=== PATIENT | female | born 1985 | race Caucasian/White ===

== ENCOUNTER 2016-08-29 15:57 | Inpatient (IN) | payer MEDICAID ==
[~2016-08-29] VITALS: Ht 160 cm; Wt 50.9 kg
[2016-08-29] MEDS ORDERED: SOD CHLORIDE 0.9% 500 ML IV STA (17:13)
[2016-08-29 17:53] LABS: ADD UMIC NO; URINE BILIRUBIN (Dip) NEGATIVE (NEGATIVE); URINE BLOOD (Dip) NEGATIVE (NEGATIVE); URINE COLOR LT. YELLOW (YELLOW); URINE GLUCOSE (Dip) NEGATIVE (NEGATIVE); URINE KETONES (Dip) NEGATIVE (NEGATIVE); URINE LEUKOCYTE ESTERASE (Dip) NEGATIVE (NEGATIVE); URINE NITRITE (Dip) NEGATIVE (NEGATIVE); URINE TOTAL PROTEIN (Dip) NEGATIVE (NEGATIVE); URINE UROBILINOGEN (Dip) 0.2 E.U./dL (0.1-1.0)
[2016-08-29 17:54] LABS: ADD SCAN DIFF NO
[2016-08-29 17:57] LABS: BASOPHILS % 0.4 % (0.0-2.0); EOSINOPHILS # 0.1 10^3/ul (0.0-0.5); EOSINOPHILS % 1.5 % (0.0-7.0); HEMOGLOBIN 12.8 g/dl (12.0-16.0); LYMPHOCYTES # 3.5 10^3/ul (0.8-2.9); LYMPHOCYTES % 41.7 % (15.0-51.0); MEAN CORPUSCULAR HEMOGLOBIN 29.1 pg (29.0-33.0); MEAN CORPUSCULAR HGB CONC 32.8 g/dl (32.0-37.0); MEAN CORPUSCULAR VOLUME 88.6 fl (82.0-101.0); MEAN PLATELET VOLUME 9.2 fl (7.4-10.4); MONOCYTE # 0.5 10^3/ul (0.3-0.9); MONOCYTES % 5.5 % (0.0-11.0); NEUTROPHIL # 4.3 10^3/ul (1.6-7.5); NEUTROPHILS % 50.5 % (39.0-77.0); PLATELET COUNT 349 10^3/UL (140-415); RED CELL DISTRIBUTION WIDTH 12.1 % (11.5-14.5); WHITE BLOOD COUNT 8.5 10^3/ul (4.8-10.8)
--- NOTE | 2016-08-29 18:16 | RADRPT ---
PROCEDURE: US Pelvis. CLINICAL INDICATION: , vaginal bleeding. TECHNIQUE: Multiple sonographic images of the pelvis were obtained utilizing a transabdominal and endovaginal technique. The images were reviewed on a PACS workstation. COMPARISON: None available. FINDINGS: Uterus appears normal in size and demonstrates a gestational sac which contains a yolk sac and pole. There is no cardiac activity detected. The mean sac size is 2.25 cm consist with a 7-week-1 -day gestation. The crown-rump length equals 0.45 cm consistent with a 9-xojs-7-day gestation. The re are no abnormal fluid collections. The right ovary is not visualized. Left ovary measures 4.1 x 2.3 x 3.2 cm. There is Doppler flow. There is a 2.4 cm corpus luteal cyst. There are no adnexal masses and no free fluid seen in the cul-de-sac. IMPRESSION: 1. Intrauterine gestation which measures 6 weeks 5 days plus or minus 3 days. There is no cardiac a ctivity detected. Continued surveillance with serial quantitative beta HCGs and follow-up ultrasoun d is suggested. RPTAT: [facility] Physician Angi Date Time Electronically viewed and signed by Physician Angi on 08/29/2016 18:16 /
[2016-08-29 18:18] LABS: ALBUMIN 4.5 g/dl (3.3-4.9); POTASSIUM 3.6 mmol/L (3.5-5.1)
[2016-08-29 18:21] LABS: ALBUMIN/GLOBULIN RATIO 1.4; BILIRUBIN,INDIRECT 0.4 mg/dl (0-1.1); BILIRUBIN,TOTAL 0.4 mg/dl (0.2-1.3); CALCIUM 9.1 mg/dl (8.4-10.2); CREATININE 0.64 mg/dl (0.44-1.00); TOTAL PROTEIN 7.7 g/dl (6.1-8.1)
[2016-08-29] MEDS ORDERED: FOLI-49 PO (19:27)
[2016-08-29] MEDS ORDERED: PRENAT PO (19:27)
[2016-08-29] MEDS ORDERED: FER325 PO (19:27)
[2016-08-29 20:45] VITALS: TEMP 98.8
[2016-08-29 20:47] LABS: INR 0.97; PROTIME 12.9 Sec (12.2-14.2)
[2016-08-29 20:48] LABS: PARTIAL THROMBOPLASTIN TIME 30.9 Sec (25.0-35.0)
--- NOTE | 2016-08-29 21:20 | ERA ---
ER Documentation Chief Complaint Date/Time DATE: 08/29/16 TIME: 21:15 Chief Complaint 6WEEKS PREG ABD CRAMPING SINCE AM, VAGINAL DISCHARGE X1DAY HPI 31-year-old woman presents with dark colored vaginal bleeding times a few days as well as increased pelvic cramping beginning this morning, although she states she has had pelvic cramping over the last few days. She is over 6 weeks by dates and previously normal ultrasound. It seems she had a previously normal ultrasound although today's ultrasound at her obstetric clinic revealed no cardiac activity and she was referred here for further evaluation. She denies loss of consciousness, no fevers or chills, no chest pain or shortness of breath, no trauma. ROS All systems reviewed and are negative except as per history of present illness. Medications Home Meds Reported Medications Ferrous Sulfate* (Ferrous Sulfate*) 325 Mg Tabec, 325 MG PO DAILY, TAB 08/29/16 Folic Acid* (Folic Acid*) 1 Mg Tablet, 1 MG PO DAILY, TAB 08/29/16 Multivit/Min/Fol Ac/Iron/Pren* ( S*) 1 Tab Tab, 1 TAB PO DAILY, TAB 08/29/16 Allergies Allergies: Coded Allergies: No Known Drug Allergy (Verified Allergy, Unknown, 08/29/16) PMhx/Soc None Medical and Surgical Hx: pt denies Medical Hx History of Surgery: Yes () Anesthesia Reaction: No Hx Neurological Disorder: No Hx Respiratory Disorders: No Hx Cardiac Disorders: No Hx Psychiatric Problems: No Hx Miscellaneous Medical Probl: No Hx Alcohol Use: No Hx Substance Use: No Hx Tobacco Use: No Smoking Status: Never smoker FmHx Family History: No diabetes Physical Exam Vitals Vital Signs Date Time Temp Pulse Resp B/P Pulse Ox O2 Delivery O2 Flow Rate FiO2 08/29/16 20:45 98.8 71 16 108/77 98 08/29/16 16:03 98.6 73 18 134/78 99 Physical Exam GENERAL: Well-developed, well-nourished, well-hydrated, in moderate discomfort HEENT: Moist mucous membranes, pink conjunctiva, no cervical spine tenderness or step-off deformities, no goiter, no jaundice or icterus, extraocular movements intact without pain. No submandibular induration, and no pharyngeal erythema NEURO: Alert and oriented 3, cranial nerves II through XII intact bilaterally, pupils equal round reactive to light, no focal deficits or facial asymmetry, sensation intact distally Strength 5/5 in upper and lower extremities bilaterally CARDIAC: Regular rate and rhythm, no murmurs rubs or gallops LUNGS: Clear bilaterally no wheezing crackles or stridor ABDOMEN: Positive lower abdominal tenderness with voluntary guarding, no rigidity, no rebound, no psoas sign no obturator sign. Normoactive bowel sounds SKIN: Warm and dry to touch, no abrasions, contusions, or hematomas, no lacerations, no ecchymosis, no target lesions, and without ulcers EXTREMITIES: No clubbing cyanosis or edema, calves are bilaterally symmetrical, no Homans sign, no popliteal cord sign. Distal pulses equal and bilateral PSYCH: Normal affect without agitation or irritability Result Diagram: 08/29/16173708/29/161737 Results 24 hrs Laboratory Tests Test 08/29/16 17:38 White Blood Count 8.510^3/ul Red Blood Count 4.4010^6/ul Hemoglobin 12.8g/dl Hematocrit 39.0% Mean Corpuscular Volume 88.6fl Mean Corpuscular Hemoglobin 29.1pg Mean Corpuscular Hemoglobin Concent 32.8g/dl Red Cell Distribution Width 12.1% Platelet Count 66803^3/UL Mean Platelet Volume 9.2fl Neutrophils % 50.5% Lymphocytes % 41.7% Monocytes % 5.5% Eosinophils % 1.5% Basophils % 0.4% Nucleated Red Blood Cells % 0.0/100WBC Neutrophils # 4.310^3/ul Lymphocytes # 3.510^3/ul Monocytes # 0.510^3/ul Eosinophils # 0.110^3/ul Basophils # 0.010^3/ul Nucleated Red Blood Cells # 0.010^3/ul Prothrombin Time 12.9Sec Prothrombin Time Ratio 1.0 INR International Normalized Ratio 0.97 Activated Partial Thromboplast Time 30.9Sec Urine Color LT. YELLOW Urine Clarity CLEAR Urine pH 6.5 Urine Specific [place] <=1.005 Urine Ketones NEGATIVE Urine Nitrite NEGATIVE Urine Bilirubin NEGATIVE Urine Urobilinogen 0.2 E.U./dL Urine Leukocyte Esterase NEGATIVE Urine Hemoglobin NEGATIVE Urine Glucose NEGATIVE% Urine Total Protein NEGATIVE Sodium Level 136mmol/L Potassium Level 3.6mmol/L Chloride Level 99mmol/L Carbon Dioxide Level 25mmol/L Anion Gap 16 Blood Urea Nitrogen 10mg/dl Creatinine 0.64mg/dl Glucose Level 89mg/dl Calcium Level 9.1mg/dl Total Bilirubin 0.4mg/dl Direct Bilirubin 0.00mg/dl Indirect Bilirubin 0.4mg/dl Aspartate Amino Transf (AST/SGOT) 21IU/L Alanine Aminotransferase (ALT/SGPT) 29IU/L Alkaline Phosphatase 52IU/L Total Protein 7.7g/dl Albumin 4.5g/dl Globulin 3.20g/dl Albumin/Globulin Ratio 1.40 Beta HCG, Quantitative 91032.0mIU/ml Current Medications Medications (Trade) Dose Ordered Sig/Filemon Route PRN Reason Start Time Stop Time Status Last Admin Dose Admin Sodium Chloride (NS) 500 ml @ 500 mls/hr Q1H STAT IV 08/29/16 17:13 08/29/16 18:12 DC 08/29/16 17:36 Procedures/MDM IV line was established patient was placed on child monitor rhythm strip revealed a sinus rhythm at about 80 bpm with upright P and T waves. Patient was afebrile. test was positive. Beta-hCG almost 100,000. Obstetric ultrasound revealed an intrauterine at over 6 weeks with no cardiac activity seen. CBC was unremarkable, electrolytes normal, urine analysis negative for infection. I administered over 1 L normal saline intravenously. I obtained VEHICLE PAINTER consultation regarding the patient's presentation, symptomatology, and ultrasound findings. I suspect she was sent here for ongoing symptoms and recent missed . Patient will be admitted for continued gynecologic management and possible D&C. I spoke to the patient regarding her symptoms, ultrasound findings, and need for admission. Departure Diagnosis: Primary Impression: Vaginal bleeding Additional Impression: Missed Condition: MEENU Chiang MD Aug 29, 2016 21:20
[2016-08-29] MEDS ORDERED: SOD CHLORIDE 0.9% 1,000 ML IV ONE (21:30)
[2016-08-29 22:55] VITALS: Ht 160 cm; Wt 50.9 kg
[2016-08-29 23:01] VITALS: BP 106/64; PULSE 74; RESP 18
--- NOTE | 2016-08-30 01:42 | PN ---
Date/Time of Note Date/Time of Note DATE: 08/30/16 TIME: 01:35 OB Subjective Subjective Subjective I was called at approx 11pm, while I was in a , and notified that this patient is admitted in [facility] under my name. I had not been previously called by the ER doctor or asked to consult on this patient and was not aware of her admission. I went to evaluate the patient on . She is a 31 yo P1 @ approximately 7 wks gestation. Sonogram shows missed , gestational sac and pole c /w [id number], and no cardiac activity. Blood type is A+, and Hemoglobin was 12.8. Patient had some mild cramps earlier, is in no pain, and is not bleeding. SVE- cervix L/C/P; no blood in vaginal vault A/P: Advised patient on the three possible treatments for missed 1. Expectant management- the may pass on its own 2. Possible medical management with cytotec to expel the 3. D&C to remove the non-viable . Discussed with patient that these are outpatient managements, and there is no indication for her to be admitted in the hospital at this time. Patient and to consider these options and return to her clinic tomorrow. Patient discharged home. ZAFAR DONG MD Aug 30, 2016 01:42
== END 2016-08-30 02:15 | disposition home or self-care (01) | DRG 779 ==
LOC: FTE 15:57 → MS1 18:50
PROVIDERS: ADMIT Obstetrics & Gynecology; ATTEND Obstetrics & Gynecology
DX: O02.1 Missed abortion (principal); O46.91 Antepartum hemorrhage, unspecified, first trimester
CPT/HCPCS: 36415; 76801; 76817; 80053; 81003; 84702; 85025; 85610; 85730; 86900; 86901; 87086; J7030; J7040

== ENCOUNTER 2016-09-04 15:13 | Emergency (ER) | payer MEDICAID ==
[~2016-09-04] VITALS: Ht 152.4 cm; Wt 51.5 kg
[2016-09-04 15:15] VITALS: Ht 152.4 cm; Wt 51.5 kg
--- NOTE | 2016-09-04 19:17 | RADRPT ---
PROCEDURE: US OB. US OB Transabd 1St Tri CLINICAL INDICATION: Follow-up, early TECHNIQUE: Transabdominal and transvaginal views of the pelvis are available for review. COMPARISON: 08/29/2016 FINDINGS: The uterus demonstrates a gestational sac, with mean sac diameter measuring 2.8 cm. There is a feta l pole identified. A yolk sac is noted. There is a 3.7 cm subchorionic bleed. [place]-rump length:5 mm heart rate:110 beats per minute Ultrasound estimated gestational age:7 weeks and 0 days Estimated delivery date 04/23/2017 . Estimated delivery date by last menstrual period 04/20/2017 No ovarian or adnexal mass lesion is seen. There is no free fluid. IMPRESSION: 1. Single live intrauterine with an estimated gestational age of 7 weeks and 0 days. The re is a moderate size subchorionic bleed noted, 3.7 cm RPTAT: HBST .Alex Townsend MD, Date Time Electronically viewed and signed by .Alex Townsend MD, on 09/04/2016 19:17 .T/
[2016-09-04] MEDS ORDERED: PRENAT PO (19:29)
--- NOTE | 2016-09-04 19:33 | ERD ---
ER Documentation Chief Complaint Date/Time DATE: 09/04/16 TIME: 19:31 Chief Complaint 7 weeks preg , no vag bleed . 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 Follow-up hCG is demonstrated arising pattern yet the OB GEN could not find a heartbeat and was sent here for evaluation to rule out demise. The patient is completely asymptomatic and not having any bleeding cramping dysuria abdominal pain or pelvic pain. She had a baby 7 months ago. ROS All systems reviewed and are negative except as per history of present illness. Medications Home Meds Active Scripts Multivit/Min/Fol Ac/Iron/Pren* ( S*) 1 Tab Tab, 1 TAB PO DAILY, #60 TAB Prov:KURTIS JAIMES DO 09/04/16 Discontinued Reported Medications Ferrous Sulfate* (Ferrous Sulfate*) 325 Mg Tabec, 325 MG PO DAILY, TAB 08/29/16 Folic Acid* (Folic Acid*) 1 Mg Tablet, 1 MG PO DAILY, TAB 08/29/16 Multivit/Min/Fol Ac/Iron/Pren* ( S*) 1 Tab Tab, 1 TAB PO DAILY, TAB 08/29/16 Allergies Allergies: Coded Allergies: No Known Drug Allergy (Verified Allergy, Unknown, 08/29/16) PMhx/Soc History of Surgery: Yes (CAESARIAN SECTION) Anesthesia Reaction: Yes (hard time breathing) Hx Neurological Disorder: No Hx Respiratory Disorders: No Hx Cardiac Disorders: No Hx Psychiatric Problems: No Hx Miscellaneous Medical Probl: No Hx Alcohol Use: No Hx Substance Use: No Hx Tobacco Use: No Smoking Status: Never smoker FmHx Family History: No coronary disease Physical Exam Vitals Vital Signs Date Time Temp Pulse Resp B/P Pulse Ox O2 Delivery O2 Flow Rate FiO2 09/04/16 15:15 98.1 69 18 105/55 99 Physical Exam Const: Well-developed, well-nourished Head: Atraumatic, normocephalic Eyes: Normal Conjunctiva, PERRLA, EOMI, normal sclera, no nystagmus ENT: Normal External Ears, Nose and Mouth, moist mucus membranes. Neck: Full range of motion. No meningismus, no lymphadenopathy. Resp: Clear to auscultation bilaterally, no wheezing, rhonchi, rales Cardio: Regular rate and rhythm, no murmurs, S1 S2 present Abd: Soft, non tender x 4, non distended. Normal bowel sounds, no guarding or rebound, no pulsitile abdominal masses or bruits Skin: No petechiae or rashes, no ecchymosis , no maculopapular rash Back: No midline or flank tenderness Ext: No cyanosis, or edema, FROM x 4, normal inspection, neurovascularly intact x 4 Neur: Awake and alert, STR 5/5 x 4, sensation intact x 4, no focal findings, cerebellum intact Psych: Normal Mood and Affect Procedures/MDM PROCEDURE: US OB. US OB Transabd 1St Tri CLINICAL INDICATION: Follow-up, early TECHNIQUE: Transabdominal and transvaginal views of the pelvis are available for review. COMPARISON: 08/29/2016 FINDINGS: The uterus demonstrates a gestational sac, with mean sac diameter measuring 2.8 cm. There is a pole identified. A yolk sac is noted. There is a 3.7 cm subchorionic bleed. [place]-rump length: 5 mm heart rate: 110 beats per minute Ultrasound estimated gestational age: 7 weeks and 0 days Estimated delivery date 04/23/2017 . Estimated delivery date by last menstrual period 04/20/2017 No ovarian or adnexal mass lesion is seen. There is no free fluid. IMPRESSION: 1. Single live intrauterine with an estimated gestational age of 7 weeks and 0 days. There is a moderate size subchorionic bleed noted, 3.7 cm RPTAT: HBST .Alex Townsend MD, Date Time Electronically viewed and signed by .Alex Townsend MD, on 09/04/2016 19:17 .T/ CC: KURTIS JAIMES DO Patient has a live IUP. She will follow-up with her OB GEN Departure Diagnosis: Primary Impression: Weeks of gestation: less than 8 weeks Qualified Code: Z3A.01 - Less than 8 weeks gestation of Condition: Stable Patient Instructions: , Established, Normal Symptoms KURTIS JAIMES DO September 04, 2016 19:33
[2016-09-04 19:49] VITALS: BP 100/61; PULSE 84; RESP 18; TEMP 98.1
== END 2016-09-04 19:49 | disposition home or self-care (01) ==
LOC: FTE 15:13
DX: Z36 Encounter for antenatal screening of mother (principal); Z3A.01 Less than 8 weeks gestation of pregnancy
CPT/HCPCS: 76801; 76817; 84702; Z7502

== ENCOUNTER 2016-10-02 20:29 | Emergency (ER) | payer MEDICAID ==
[~2016-10-02] VITALS: Ht 162.6 cm; Wt 51.0 kg
[~2016-10-02 20:29] MED LIST: PRENAT PO
[2016-10-02 20:31] VITALS: Ht 162.6 cm; Wt 51.0 kg
[2016-10-02] MEDS ORDERED: ACETAMINOPHEN 325 MG TAB PO STA (21:42)
[2016-10-02 22:14] LABS: ADD SCAN DIFF NO
[2016-10-02 22:16] LABS: BASOPHILS % 0.3 % (0.0-2.0); EOSINOPHILS # 0.2 10^3/ul (0.0-0.5); EOSINOPHILS % 2.4 % (0.0-7.0); HEMATOCRIT 36.3 % (37.0-47.0); LYMPHOCYTES # 3.7 10^3/ul (0.8-2.9); LYMPHOCYTES % 41.6 % (15.0-51.0); MEAN CORPUSCULAR HEMOGLOBIN 28.8 pg (29.0-33.0); MEAN CORPUSCULAR HGB CONC 33.1 g/dl (32.0-37.0); MEAN CORPUSCULAR VOLUME 87.3 fl (82.0-101.0); MEAN PLATELET VOLUME 9.4 fl (7.4-10.4); MONOCYTE # 0.3 10^3/ul (0.3-0.9); MONOCYTES % 3.8 % (0.0-11.0); NEUTROPHIL # 4.5 10^3/ul (1.6-7.5); NEUTROPHILS % 51.7 % (39.0-77.0); PLATELET COUNT 292 10^3/UL (140-415); RED BLOOD COUNT 4.16 10^6/ul (4.20-5.40); WHITE BLOOD COUNT 8.8 10^3/ul (4.8-10.8)
[2016-10-02 22:41] LABS: ALBUMIN 4.7 g/dl (3.3-4.9); ALBUMIN/GLOBULIN RATIO 1.95; BILIRUBIN,INDIRECT 0.5 mg/dl (0-1.1); BILIRUBIN,TOTAL 0.5 mg/dl (0.2-1.3); CALCIUM 8.9 mg/dl (8.4-10.2); CREATININE 0.54 mg/dl (0.44-1.00); POTASSIUM 3.7 mmol/L (3.5-5.1); TOTAL PROTEIN 7.1 g/dl (6.1-8.1)
[2016-10-02 23:14] LABS: ADD UMIC YES; URINE BILIRUBIN (Dip) NEGATIVE (NEGATIVE); URINE BLOOD (Dip) 1+ (NEGATIVE); URINE COLOR LT. YELLOW (YELLOW); URINE GLUCOSE (Dip) NEGATIVE (NEGATIVE); URINE KETONES (Dip) NEGATIVE (NEGATIVE); URINE LEUKOCYTE ESTERASE (Dip) NEGATIVE (NEGATIVE); URINE NITRITE (Dip) NEGATIVE (NEGATIVE); URINE TOTAL PROTEIN (Dip) NEGATIVE (NEGATIVE); URINE UROBILINOGEN (Dip) 0.2 E.U./dL (0.1-1.0)
--- NOTE | 2016-10-02 23:25 | RADRPT ---
PROCEDURE: US OB. CLINICAL INDICATION: Pelvic pain. Bleeding. TECHNIQUE: Multiple sonographic images of the pelvis were obtained. Transabdominal and transvagin al views of the pelvis are available for review. The images were reviewed on a PACS workstation. COMPARISON: 09/04/2016 FINDINGS: There is an irregular intrauterine gestational sac at 3.4 cm diameter, corresponding to 8 weeks 4 da ys age. No pole or heart motion is identified.. A yolk sac is identified. Internal debris is present within the sac. The previously demonstrated subchorionic hemorrhage is not identified. Ther e is a 1.2 x 1.2 x 1.3 cm left adnexal/. Ovarian cyst. The ovaries are otherwise unremarkable colo r flow.. There is no adnexal mass or free fluid. IMPRESSION: 1. Previously demonstrated pole with heart motion is low longer identified. Irregular gestat ional sac in the weeks 4 days size with debris is now present, compatible with demise. 2. Previously identified subchorionic hemorrhage is not distinctly visualized. 3. Left paraovarian simple cyst. RPTAT: HMVK .Beto Sánchez MD, MD Date Time Electronically viewed and signed by .Beto Sánchez MD, MD on 10/02/2016 23:25 .K/
[2016-10-02 23:38] LABS: BACTERIA,URINE FEW; SQUAMOUS EPITHELIAL CELL,UR OCCASIONAL; URINE RBCS 0-2 /HPF (0)
--- NOTE | 2016-10-03 00:17 | ERD ---
ER Documentation Chief Complaint Date/Time DATE: 10/03/16 TIME: 00:16 Chief Complaint headache x 1 week HPI Pt 31 yo female presenting to the emergency department for vaginal bleeding which has been ongoing intermittently for the past week. One week ago the patient started taking Cytotec prescribed by her [employer] physician to assist with expelling retained products of conception. The patient was diagnosed with a incomplete by her [employer] physician at approximately 8 weeks of . The patient is now reportedly 10 weeks along in and she is determining whether she will have a D&C or continue taking Cytotec. Currently she only has intermittent vaginal bleeding but no suprapubic pain, abdominal pain, fevers, chills, nausea, vomiting, diarrhea, or other symptoms. ROS All systems reviewed and are negative except as per history of present illness. Medications Home Meds Active Scripts Acetaminophen* (Tylophen*) 500 Mg Capsule, 1 CAP PO Q6H Y for PAIN AND OR ELEVATED TEMP, #20 CAP Prov:MARYAM HUDDLESTON NP 10/03/16 Misoprostol* (Cytotec*) 100 Mcg Tablet, 400 MCG PO Q6, #8 TAB Prov:MARYAM HUDDLESTON NP 10/03/16 Multivit/Min/Fol Ac/Iron/Pren* ( S*) 1 Tab Tab, 1 TAB PO DAILY, #60 TAB Prov:KURTIS JAIMES DO 09/04/16 Allergies Allergies: Coded Allergies: No Known Drug Allergy (Verified Allergy, Unknown, 08/29/16) PMhx/Soc History of Surgery: Yes (CAESARIAN SECTION) Anesthesia Reaction: Yes (hard time breathing) Hx Neurological Disorder: No Hx Respiratory Disorders: No Hx Cardiac Disorders: No Hx Psychiatric Problems: No Hx Miscellaneous Medical Probl: No Hx Alcohol Use: No Hx Substance Use: No Hx Tobacco Use: No FmHx Noncontributory for chief complaint Physical Exam Vitals Vital Signs Date Time Temp Pulse Resp B/P Pulse Ox O2 Delivery O2 Flow Rate FiO2 10/03/16 01:31 97.8 74 17 121/58 99 Room Air 10/02/16 20:31 97.8 76 20 114/61 99 Physical Exam Const: The patient is resting comfortably in no acute distress. Head: Atraumatic Eyes: Normal Conjunctiva ENT: Normal External Ears, Nose and Mouth. Neck: Full range of motion..~ No meningismus. Resp: Clear to auscultation bilaterally Cardio: Regular rate and rhythm, no murmurs Abd: Soft, non tender, non distended. Normal bowel sounds Skin: No petechiae or rashes Back: No midline or flank tenderness Ext: No cyanosis, or edema Neur: Awake and alert Psych: Normal Mood and Affect Result Diagram: 10/02/16215510/02/162155 Results 24 hrs Laboratory Tests Test 10/02/16 21:56 10/02/16 22:46 10/02/16 23:50 White Blood Count 8.810^3/ul Red Blood Count 4.1610^6/ul Hemoglobin 12.0g/dl Hematocrit 36.3% Mean Corpuscular Volume 87.3fl Mean Corpuscular Hemoglobin 28.8pg Mean Corpuscular Hemoglobin Concent 33.1g/dl Red Cell Distribution Width 12.0% Platelet Count 98343^3/UL Mean Platelet Volume 9.4fl Neutrophils % 51.7% Lymphocytes % 41.6% Monocytes % 3.8% Eosinophils % 2.4% Basophils % 0.3% Nucleated Red Blood Cells % 0.0/100WBC Neutrophils # 4.510^3/ul Lymphocytes # 3.710^3/ul Monocytes # 0.310^3/ul Eosinophils # 0.210^3/ul Basophils # 0.010^3/ul Nucleated Red Blood Cells # 0.010^3/ul Sodium Level 137mmol/L Potassium Level 3.7mmol/L Chloride Level 109mmol/L Carbon Dioxide Level 24mmol/L Anion Gap 8 Blood Urea Nitrogen 10mg/dl Creatinine 0.54mg/dl Glucose Level 90mg/dl Calcium Level 8.9mg/dl Total Bilirubin 0.5mg/dl Direct Bilirubin 0.00mg/dl Indirect Bilirubin 0.5mg/dl Aspartate Amino Transf (AST/SGOT) 27IU/L Alanine Aminotransferase (ALT/SGPT) 38IU/L Alkaline Phosphatase 61IU/L Total Protein 7.1g/dl Albumin 4.7g/dl Globulin 2.40g/dl Albumin/Globulin Ratio 1.95 Beta HCG, Quantitative 44144.0mIU/ml Urine Color LT. YELLOW Urine Clarity CLEAR Urine pH 5.5 Urine Specific [place] <=1.005 Urine Ketones NEGATIVE Urine Nitrite NEGATIVE Urine Bilirubin NEGATIVE Urine Urobilinogen 0.2 E.U./dL Urine Leukocyte Esterase NEGATIVE Urine Microscopic RBC 0-2/HPF Urine Microscopic WBC 0-2/HPF Urine Squamous Epithelial Cells OCCASIONAL Urine Bacteria FEW Urine Hemoglobin 1+ Urine Glucose NEGATIVE% Urine Total Protein NEGATIVE Prothrombin Time 13.5Sec Prothrombin Time Ratio 1.1 INR International Normalized Ratio 1.03 Activated Partial Thromboplast Time 30.7Sec Current Medications Medications (Trade) Dose Ordered Sig/Filemon Route PRN Reason Start Time Stop Time Status Last Admin Dose Admin Acetaminophen (Tylenol Tab) 650 mg ONCE STAT PO 10/02/16 21:42 10/02/16 21:44 DC 10/02/16 21:55 [place] [address] Radiology Main Line: [phone] DIAGNOSTIC IMAGING REPORT Patient: JACQUES SANDERSON : 1985 Age: 31 Sex: F MR #: [id number] DOS: 10/02/16 0000 Ordering MD: DAVID SMALLS PA-C Location: [facility] Room/Bed: PROCEDURE: US OB. CLINICAL INDICATION: Pelvic pain. Bleeding. TECHNIQUE: Multiple sonographic images of the pelvis were obtained. Transabdominal and transvaginal views of the pelvis are available for review. The images were reviewed on a PACS workstation. COMPARISON: 09/04/2016 FINDINGS: There is an irregular intrauterine gestational sac at 3.4 cm diameter, corresponding to 8 weeks 4 days age. No pole or heart motion is identified.. A yolk sac is identified. Internal debris is present within the sac. The previously demonstrated subchorionic hemorrhage is not identified. There is a 1.2 x 1.2 x 1.3 cm left adnexal/. Ovarian cyst. The ovaries are otherwise unremarkable color flow.. There is no adnexal mass or free fluid. IMPRESSION: 1. Previously demonstrated pole with heart motion is low longer identified. Irregular gestational sac in the weeks 4 days size with debris is now present, compatible with demise. 2. Previously identified subchorionic hemorrhage is not distinctly visualized. 3. Left paraovarian simple cyst. RPTAT: HMVK .Beto Sánchez MD, Date Time Electronically viewed and signed by .Beto Sánchez MD, on 10/02/2016 23:25 .K/ CC: DAVID SMALLS PA-C Procedures/MDM This patient is a 31-year-old female presenting to the emergency department for intermittent vaginal bleeding after incomplete . On physical examination the patient's vitals are stable and they remained stable throughout the patient's ED course. Lab results showed no significant acute abnormalities. There were no signs of leukocytosis or anemia. Urinalysis is negative for infection or proteinuria. Transvaginal and transabdominal ultrasound was obtained and had an overall impression of: 1. Previously demonstrated pole with heart motion is low longer identified. Irregular gestational sac in the weeks 4 days size with debris is now present, compatible with demise. 2. Previously identified subchorionic hemorrhage is not distinctly visualized. 3. Left paraovarian simple cyst. After receiving these results I contacted the on-call laborist Dr. Tijerina, and then this patient's care was signed out to my colleague, Maryam Huddleston NP, who followed up after coag results were received. She then contacted Dr. Tijerina again, who recommended patient to be sent home with Cytotec 400 mcg q6hrs for 2 days, ffup with outpatient OB for further eval, return for worsening s/s. This recommendation was honored. The patient understand the discharge plan and diagnosis and was stable for discharge afterwards. Strict ER return precautions were discussed with the patient prior to discharge. Departure Diagnosis: Primary Impression: Missed with demise before 20 completed weeksof ... Condition: Fair Patient Instructions: Missed Miscarriage Referrals: [employer] [place] [address] [facility] [address] [place] [address]ME [address] [address] [address]AL[address] [address] [place] [address] THER[address] DI[address]EMILY [address], [place] [address] [facility] [address] [place] [address] [facility] [address] [place] [address] [facility] [id number] [address]INE[address] [facility], [facility] [address] [address] [facility] [address] [facility]. [address], [facility] [address] [facility] [address] [place], [place] [address] Additional Instructions: No mas mejor en 2-3 worrell, regresar. Mas peor en 24 horas, regresear rapidamente. Ir a doctor primario in 5-7 worrell. Usar instrucciones cuando ronda medicamento. DAVID SMALLS PA-C Oct 03, 2016 00:17 [id number] [facility] [address] [place] [address] OFFICE FAX WALE MYERS [address] [place] [address] [address] [place] [address] [place] [address] [facility] [address], [place] [address] [address] [facility] [facility] [address] [place] [address] [facility] [place] [address] [place] [id number] [facility] [id number] - [address] LAINEZ, NOELLE [address] [facility] [id number] [place], [place] [address] [facility]. [address], [facility] [id number] [place], [place] [address] [place] [address] Additional Instructions: No mas mejor en 2-3 worrell, regresar. Mas peor en 24 horas, regresear rapidamente. Ir a doctor primario in 5-7 worrell. Usar instrucciones cuando ronda medicamento. DAVID SMALLS PA-C Oct 03, 2016 00:17
[2016-10-03 00:20] LABS: INR 1.03; PROTIME 13.5 Sec (12.2-14.2); PT RATIO 1.1
[2016-10-03 00:21] LABS: PARTIAL THROMBOPLASTIN TIME 30.7 Sec (25.0-35.0)
[2016-10-03] MEDS ORDERED: ACET500C5 PO (00:53)
[2016-10-03] MEDS ORDERED: MISO100T PO (00:53)
--- NOTE | 2016-10-03 00:56 | QN ---
Documentation Comment JAMIL So signed out this patient to me pending coags, these were reviewed, discussed the results with OB laborist, Dr Mathur, recommended patient to be sent home with Cytotec 400 mcg q6hrs for 2 days, ffup with outpatient OB for further eval, return for worsening s/s . Disposition: Home. Stable. MATILDA HUDDLESTON NP Oct 03, 2016 00:56
[2016-10-03 01:31] VITALS: BP 121/58; PULSE 74; RESP 17; TEMP 97.8
== END 2016-10-03 01:32 | disposition home or self-care (01) ==
LOC: FTE 20:29
DX: O02.1 Missed abortion (principal)
CPT/HCPCS: 76801; 76817; 80053; 81001; 84702; 85025; 85610; 85730; 86900; 86901; Z7502; Z7610

== ENCOUNTER 2017-09-04 01:28 | Inpatient (IN) | END 2017-09-04 15:30 | disposition home or self-care (01) | DRG 780 ==

== ENCOUNTER 2018-01-29 20:10 | Outpatient (CLI) | END 2018-01-29 22:40 | disposition home or self-care (01) ==

== ENCOUNTER 2018-02-01 20:07 | Outpatient (CLI) | END 2018-02-01 23:15 | disposition home or self-care (01) ==

== ENCOUNTER 2018-02-04 10:17 | Inpatient (IN) | END 2018-02-07 17:10 | disposition home or self-care (01) | DRG 788 ==